=== PATIENT | female | born 1940 | race Caucasian/White ===

== ENCOUNTER → 2016-10-16 | Outpatient (CLI) | payer MEDICARE, BC ==
[~2016-10-16] MED LIST: ACETAMINOPHEN650 M3 PO; ALPRAZOLAM PO; ALPRAZOLAM0.5 MG PO; CARDIZEM CD PO; CARTIA XT240 MG PO; CATAPRES0.1 MG PO; CELEBREX PO; CLONIDINE PO; COLACE PO; COUMADIN PO; DUONEB 2.5-0.5 M3 ML NEB; HCTZ PO; HYDRALAZINE HCL25 MG PO; HYDRALAZINE HCL50 MG PO; HYDROCODON-ACE1 EAC1 PO; HYDROCODONE-APA1 T30 PO; LASIX20 MG PO; MINOXIDIL PO; MIRALAX17 G1 PO; NEXIUM PO; NORCO 5/325 TAB1 TAB PO; PAXIL PO; PERFOROMIS20 MCG/2 M NEB; PRAVASTATIN SOD40 MG PO; PREDNISONE PO; PRILOSEC PO; PULMICORT0.5 MG/2 M NEB; TOPROL XL PO; TOPROL XL50 MG PO; TYLENOL #3 PO; TYLENOL WITH C1 EACH PO; VASOTEC PO; ZOCOR PO
--- NOTE | ~2016-10-16 | MR176 ---
[facility] A Service of [facility] RADIOLOGY TEXT RESULTS PATIENT: ARIEL LOZANO I LOCATION: [facility] : 40 UNIT #: [id number] AGE: [address]: ELIZABETH BREWER SEX: F ORDER DR: [id number] [facility] [address] [place], [place] [address] [id number] O MR#: [id number] Acc #: [id number] NAME: ARIEL LOZANO : 1940 SEX: F STUDY DATE/TIME: 10/16/2016 15:47 UNIT: [facility] ROOM: STUDY DESCRIPTION: MR Thoracic Wo Contrast Attending Physician: Elizabeth Brewer Referring Physician: Elizabeth Brewer Primary Care Physician: Delta Thao Jr., M.D. MRI CENTER REPORT This report is preliminary unless electronic signature is present. EXAM Thoracic MRI HISTORY Chronic mid-back pain for many years. TECHNIQUE Multiplanar imaging of the thoracic spine was performed with short and long TR. FINDINGS There is mild generalized mid thoracic dextroscoliosis. Degenerative changes are seen at all thoracic discs. There is no evidence of thoracic disc herniation. The spinal canal is widely patent. The thoracic cord is normal in size and signal. Mild degenerative changes are seen in the mid thoracic facets without significant canal narrowing. There is no evidence of marrow edema or paraspinous mass. IMPRESSION Mild thoracic dextroscoliosis. Moderate degenerative changes of thoracic discs without evidence of disc herniation, cord compression or cord lesion. Dictated by... Efrain Mayorga M.D. THIS IS AN ELECTRONICALLY VERIFIED REPORT Efrain Mayorga M.D. at 10/17/2016 6:31 PM RLF/jose luis TD: 10/17/2016 11:39 JOB #: [id number] MRI CENTER REPORT [facility] A Service of [facility] RADIOLOGY TEXT RESULTS PATIENT: ARIEL LOZANO I LOCATION: [facility] : 40 UNIT #: [id number] AGE: [address]: ELIZABETH BREWER SEX: F ORDER DR: Page 1 of 1 COPY
--- NOTE | ~2016-10-16 | MR32 ---
[facility] A Service of [facility] RADIOLOGY TEXT RESULTS PATIENT: ARIEL LOZANO I LOCATION: [facility] : 40 UNIT #: [id number] AGE: [address]: ELIZABETH BREWER SEX: F ORDER DR: [id number] [facility] [address] [place], [place] [address] [id number] O MR#: [id number] Acc #: [id number] NAME: ARIEL LOZANO : 1940 SEX: F STUDY DATE/TIME: 10/16/2016 15:47 UNIT: [facility] ROOM: STUDY DESCRIPTION: MR Cervical Wo Contrast Attending Physician: Elizabeth Brewer Referring Physician: Elizabeth Brewer Primary Care Physician: Delta Thao Jr., M.D. MRI CENTER REPORT This report is preliminary unless electronic signature is present. EXAM Cervical MRI HISTORY Chronic neck pain for many years. Pain is worse with flexion and extension. TECHNIQUE Multiplanar imaging of the cervical spine was performed with short and long TR. FINDINGS There is reversal of normal cervical lordosis. Degenerative changes are seen at all cervical levels. There is a slight degenerative anterolisthesis of C2 on C3 and C3 on C4 accompanied by disc space narrowing. At C2-3, the canal and foramina are widely patent. At C3-4, there is mild central stenosis from a midline disc osteophyte complex and mild bilateral foraminal stenosis. At C4-5, there is mild broad-based posterior disc bulging and osteophyte with mild central stenosis and mild bilateral foraminal stenosis. At C5-6, there is disc space collapse with a mild broad-based posterior disc osteophyte complex that extends to both uncovertebral joints. Central stenosis is mild and foraminal narrowing is moderate bilaterally. At C6-7, the disc is collapsed with broad-based posterior disc bulging and osteophyte formation. This extends to the left uncovertebral joint. Foraminal stenosis is mild bilaterally and central stenosis is mild. [facility] A Service of [facility] RADIOLOGY TEXT RESULTS PATIENT: ARIEL LOZANO I LOCATION: [facility] : 40 UNIT #: [id number] AGE: [address]: ELIZABETH BREWER SEX: F ORDER DR: At C7-T1, the disc is collapsed. There is bilateral uncovertebral joint osteophyte formation with mild central stenosis and mild bilateral foraminal stenosis. The cord is normal in size and signal. There is no evidence of marrow edema or paraspinous mass. IMPRESSION Moderate to advanced multilevel cervical degenerative disc disease as described above. Central stenosis remains mild throughout the cervical spine and foraminal narrowing is generally [id number], most prominent on the left at C6-7. Degenerative disc disease is most severe at C5-6, C6-7 and C7-T1. Dictated by... Efrain Mayorga M.D. THIS IS AN ELECTRONICALLY VERIFIED REPORT Efrain Mayorga M.D. at 10/17/2016 6:31 PM LLOYD/sobia TD: 10/17/2016 11:48 JOB #: [id number] MRI CENTER REPORT Page 1 of 1 COPY
--- NOTE | ~2016-10-16 | MR113 ---
[facility] A Service of [facility] RADIOLOGY TEXT RESULTS PATIENT: ARIEL LOZANO I LOCATION: [facility] : 40 UNIT #: [id number] AGE: [address]: ELIZABETH BREWER SEX: F ORDER DR: [id number] [facility] [address] [place], [place] [address] [id number] O MR#: [id number] Acc #: [id number] NAME: ARIEL LOZANO : 1940 SEX: F STUDY DATE/TIME: 10/16/2016 15:47 UNIT: [facility] ROOM: STUDY DESCRIPTION: MR Lumbar Wo Contrast Attending Physician: Elizabeth Brewer Referring Physician: Elizabeth Brewer Ordering Physician: Andres Gamble M.D. Primary Care Physician: Delta Thao Jr., M.D. MRI CENTER REPORT This report is preliminary unless electronic signature is present. EXAM Lumbar MRI HISTORY Chronic back pain for many years. Low back pain radiates to both hips and legs. TECHNIQUE Multiplanar imaging of the lumbar spine was performed with short and long TR. 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 At L1-L2, there is mild facet hypertrophy with no significant canal or foraminal narrowing. At L2-L3, the disc and facets are unremarkable. At L3-L4, there is moderate disc space narrowing with mild broad-based disc bulging. The facets are intact. The canal and foramina are widely patent. At L4-L5, the disc is degenerated with diffuse broad-based posterior disc bulging, more prominent in the midline. There is moderate bilateral facet hypertrophy with fluid in the facets. This is greater on the right than on the left. The canal is widely patent. Foraminal narrowing is mild bilaterally and worse on the right than on the left. At L5-S1, there is a grade 2 spondylolisthesis. Bilateral pars defects are seen at L5. The L5-S1 disc is collapsed. Central stenosis at the upper S1 level is moderately severe and worse to the left than to the right from facet hypertrophy. Foraminal stenosis is moderately severe [facility] A Service of [facility] RADIOLOGY TEXT RESULTS PATIENT: ARIEL LOZANO I LOCATION: [facility] : 40 UNIT #: [id number] AGE: [address]: ELIZABETH BREWER SEX: F ORDER DR: bilaterally and worse on the left. There is loss of fat around the exiting L5 root on the left side, and there is minimal fat around this root on the right. The conus is normal. Nerve roots of the cauda quinine have a normal branching pattern. No paraspinous masses are seen. IMPRESSION 1. The dominant abnormality is at L5-S1 where there is a grade 2 spondylolisthesis with moderately severe bilateral foraminal narrowing and moderately severe central stenosis. Foraminal narrowing is greater on the left than on the right. 2. Moderate facet arthropathy L4-L5. This is worse on the right than on the left. Foraminal stenosis is mild bilaterally, but greater on the right. 3. Mild generalized lumbar levoscoliosis. 4. Bilateral spondylolysis L5. Dictated by... Efrain Mayorga M.D. THIS IS AN ELECTRONICALLY VERIFIED REPORT Efrain Mayorga M.D. at 10/17/2016 6:31 PM LLOYD/dayan TD: 10/17/2016 11:36 JOB #: [id number] MRI CENTER REPORT Page 1 of 1 COPY
== END | disposition home or self-care (01) ==
LOC: CMRI 15:01
DX: M54.5 Low back pain (principal); M54.2 Cervicalgia; G89.29 Other chronic pain; R05 Cough; M43.16 Spondylolisthesis, lumbar region; M48.02 Spinal stenosis, cervical region; M46.96 Unspecified inflammatory spondylopathy, lumbar region; M41.9 Scoliosis, unspecified; M47.816 Spondylosis without myelopathy or radiculopathy, lumbar region; M47.814 Spondylosis without myelopathy or radiculopathy, thoracic region; M50.33 Other cervical disc degeneration, cervicothoracic region; M50.322 Other cervical disc degeneration at C5-C6 level; M50.323 Other cervical disc degeneration at C6-C7 level
CPT/HCPCS: 72141; 72146; 72148